=== PATIENT | male | born 1945 | race Caucasian/White ===

== ENCOUNTER 2020-08-08 12:22 | Inpatient (IN) ==
[2020-08-08] MEDS ORDERED: 0.9 % Sodium Chloride 1,000 ML IVC ONE (12:29)
[2020-08-08] MEDS ORDERED: levoFLOXacin 750 MG/150 ML 750 MG/150 ML BAG IVPB ONE (12:29)
[2020-08-08] MEDS ORDERED: 0.9 % Sodium Chloride 2,000 ML ONE (12:30)
[2020-08-08 13:06] LABS: Basophils # 0.1 K/mcL (0.0-0.2); Basophils % 0.2 %; Hematocrit 37.3 % (37.5-50.1); Hemoglobin 12.4 g/dL (12.9-16.9); Immature Granulocytes % 0.8 % (0-4); Lymphocytes # 1.3 K/mcL (0.6-4.6); Mean Corpuscular HGB Conc 33.2 g/dL (31.6-35.5); Mean Corpuscular Volume 90.3 fL (83.0-100.0); Mean Platelet Volume 11.5 fL (9.4-12.4); Monocytes # 2.1 K/mcL (0.0-1.3); Neutrophils # 17.6 K/mcL (1.6-8.9); Platelet Count 165 K/mcL (140-400); Red Blood Count 4.13 M/mcL (4.19-5.50); Red Cell Distribution Width 13.6 % (11.5-14.5); White Blood Count 21.3 K/mcL (4.3-11.1)
[2020-08-08 13:07] LABS: INR 1.2; Prothrombin Time 14.1 Seconds (9.4-12.1)
[2020-08-08 13:10] LABS: Activated Partial Thrombo Time 27.9 Seconds (26.0-36.0)
[2020-08-08 13:24] LABS: Bilirubin,Urine Negative (Negative); Blood,Urine Large (Negative); Clarity,Urine Turbid (Clear); Color,Urine Yellow (Yellow); Glucose,Urine (UA) 50 mg/dL (Normal); Ketones,Urine Trace mg/dL (Negative); Leukocyte Esterase,Urine Small (Negative); Mucus,Urine Few per lpf (None-Few); Nitrite,Urine Negative (Negative); PH,Urine 6.5 pH Units (5.0-8.0); Protein,Urine >=600 mg/dL (Neg-Trace); RBC,Urine TNTC per hpf (0-3); Specific Gravity,Urine 1.024 (1.010-1.025); Squamous Epithelial Cell,Urine Few per hpf (None-Few); Urobilinogen,Urine Normal (Normal); WBC,Urine TNTC per hpf (0-3)
[2020-08-08 13:25] LABS: Albumin 3.3 g/dL (3.5-5.7); Albumin/Globulin Ratio 1.4 (1.1-2.2); Bilirubin,Direct 0.2 mg/dL (0.0-0.2); Bilirubin,Indirect 0.7 mg/dL (0.0-1.0); Bilirubin,Total 0.9 mg/dL (0.3-1.0); Calcium 8.2 mg/dL (8.6-10.3); Globulin 2.4 g/dL (2.4-3.5); Magnesium 1.2 mg/dL (1.6-2.6); Phosphorous 2.9 mg/dL (2.7-4.5); Potassium 4.1 mEq/L (3.5-5.1); Total Protein 5.7 g/dL (6.4-8.9); Troponin I 0.19 ng/mL (< 0.04)
[2020-08-08] MEDS ORDERED: D5% in Water 1,000 ML IVC PRN (13:53)
[2020-08-08] MEDS ORDERED: Dextrose Gel 15 GM/37.5 ML TUBE PO PRN ×2 (13:53)
[2020-08-08] MEDS ORDERED: *HR* Dextrose 50 % in Water (Vial) 50 ML VIAL IVP PRN (13:53)
[2020-08-08] MEDS ORDERED: Ondansetron 4 MG/2 ML VIAL IVP PRN (13:53)
[2020-08-08] MEDS ORDERED: Naloxone 0.4 MG/ML INJ IVP PRN (13:53)
[2020-08-08] MEDS: Gabapentin 400 MG CAPSULE PO SCH ×2 (14:56→21:10)
[2020-08-08] MEDS: *HR* HYDROcodone/Acet 5/325 mg TABLET PO PRN (14:59)
[2020-08-08] MEDS: Insulin LISPRO 300 UNITS/3 ML VIAL SUBQ SCH (16:16)
[2020-08-08] MEDS: *HR* Heparin 5,000 UNIT/ML VIAL SQ SCH (16:16)
[2020-08-08 16:47] LABS: Estimated Average Glucose 160 mg/dl; Hemoglobin A1C 7.2 %
[2020-08-08] MEDS ORDERED: *HR* Heparin 5,000 UNIT/ML VIAL IVP ONE (20:49)
[2020-08-08] MEDS ORDERED: *HR* Heparin 5,000 UNIT/ML VIAL IVP PRN ×2 (20:49)
[2020-08-08] MEDS ORDERED: Insulin LISPRO 300 UNITS/3 ML VIAL SUBQ SCH (21:00)
[2020-08-08] MEDS: *HR* OxyCODONE Immed Rel 5 MG TABLET PO PRN (21:10)
[2020-08-08] MEDS: Insulin DETEMIR 100 UNIT/ML X5UNITS SUBQ SCH (21:20)
[2020-08-08] MEDS: Heparin 25,000UNIT/250ML 1/2NS 25,000 UNIT/250 ML IV.SOLN IVC SCH (21:23)
[2020-08-08 21:30] LABS: Heparin anti-factor XA UFH < 0.04 IU/mL (0.30-0.70); INR 1.4; Prothrombin Time 15.9 Seconds (9.4-12.1)
[2020-08-08 21:32] LABS: Activated Partial Thrombo Time 25.1 Seconds (26.0-36.0)
[2020-08-09 00:34] LABS: Basophils % 0.2 %; Hematocrit 35.7 % (37.5-50.1); Hemoglobin 11.8 g/dL (12.9-16.9); Immature Granulocytes % 1.3 % (0-4); Lymphocytes # 1.4 K/mcL (0.6-4.6); Lymphocytes % 5.5 %; Mean Corpuscular HGB Conc 33.1 g/dL (31.6-35.5); Mean Corpuscular Volume 90.8 fL (83.0-100.0); Mean Platelet Volume 11.3 fL (9.4-12.4); Monocytes # 2.4 K/mcL (0.0-1.3); Monocytes % 9.5 %; Neutrophils # 20.8 K/mcL (1.6-8.9); Platelet Count 161 K/mcL (140-400); Red Blood Count 3.93 M/mcL (4.19-5.50); Red Cell Distribution Width 13.7 % (11.5-14.5); Segmented Neutrophils % 83.5 %; White Blood Count 24.9 K/mcL (4.3-11.1)
[2020-08-09 00:53] LABS: Albumin/Globulin Ratio 1.2 (1.1-2.2); Bilirubin,Total 1.2 mg/dL (0.3-1.0); Calcium 7.9 mg/dL (8.6-10.3); Chol/HDL Ratio 2.5 (0-4.9); Globulin 2.5 g/dL (2.4-3.5); Magnesium 1.4 mg/dL (1.6-2.6); Potassium 4.1 mEq/L (3.5-5.1); Total Protein 5.5 g/dL (6.4-8.9)
[2020-08-09] MEDS: Acetaminophen 325 MG TABLET PO PRN ×2 (02:22→20:55)
[2020-08-09] MEDS: *HR* OxyCODONE Immed Rel 5 MG TABLET PO PRN (05:28)
[2020-08-09] MEDS: *HR* Heparin 5,000 UNIT/ML VIAL SQ SCH (05:28)
[2020-08-09 05:51] LABS: Adenovirus Not Detected (Not Detect); Bordetella Pertussis Not Detected (Not Detect); Chlamydophila pneumoniae Not Detected (Not Detect); Coronavirus 229E Not Detected (Not Detect); Coronavirus HKU1 Not Detected (Not Detect); Coronavirus NL63 Not Detected (Not Detect); Coronavirus OC43 Not Detected (Not Detect); Human Metapneumovirus Not Detected (Not Detect); Human Rhinovirus/Enterovirus Not Detected (Not Detect); Influenza A Subtype 2009 H1 Not Detected (Not Detect); Influenza B Not Detected (Not Detect); Mycoplasma pneumoniae Not Detected (Not Detect); Parainfluenza Virus 1 Not Detected (Not Detect); Parainfluenza Virus 2 Not Detected (Not Detect); Parainfluenza Virus 3 Not Detected (Not Detect); Parainfluenza Virus 4 Not Detected (Not Detect); Respiratory Syncytial Virus Not Detected (Not Detect)
[2020-08-09] MEDS ORDERED: Perflutren Lipid Microsphere 1.3 ML in 0.9 % Sodium Chloride 8.7 ML IVP PRN ×2 (05:57→09:15)
[2020-08-09] MEDS ORDERED: Ipratropium/Albuterol Neb 3 ML IH PRN (07:42)
[2020-08-09] MEDS ORDERED: Magnesium Sulfate 1 GM/102 ML PIGGYBACK IVPB ONE (07:44)
[2020-08-09] MEDS: Insulin LISPRO 300 UNITS/3 ML VIAL SUBQ SCH ×3 (08:03→20:51)
[2020-08-09 08:32] LABS: ABG Base Excess -1 mEq/L (-2 to 3); ABG HCO3 26 mEq/L (21-27); ABG Oxygen Saturation 91 % (95-98); ABG PCO2 56 mmHg (35-45); ABG PH 7.28 pH Units (7.32-7.45); ABG PO2 69 mmHg (85-104); ABG TCO2 28 mEq/L (20-26)
[2020-08-09] MEDS ORDERED: NIFEdipine XL (24 HR) 60 MG TAB.ER.24 PO SCH (09:00)
[2020-08-09] MEDS: Thiamine (B-1) 100 MG TABLET PO SCH (09:25)
[2020-08-09] MEDS: Cholecalciferol (D-3) 1,000 UNIT (25MCG) TABLET PO SCH (09:25)
[2020-08-09] MEDS: Aspirin Enteric Coated 81 MG Tablet PO SCH (09:25)
[2020-08-09] MEDS: Multivit/Ca/Min/Fe/FA 1 TAB TABLET PO SCH (09:26)
[2020-08-09] MEDS: Isosorbide MONOnitrate (24 HR) 30 MG TAB.ER.24H PO SCH (09:28)
[2020-08-09] MEDS: Furosemide 20 MG/2 ML VIAL IVP SCH ×2 (09:31→20:55)
[2020-08-09] MEDS: Insulin DETEMIR 100 UNIT/ML X5UNITS SUBQ SCH (09:31)
[2020-08-09] MEDS: Albumin 25% 25gram/100mL 25 GM/100 ML IV.SOLN IVPB SCH ×3 (10:58→23:36)
[2020-08-09] MEDS ORDERED: Insulin LISPRO 300 UNITS/3 ML VIAL SUBQ SCH (12:00)
[2020-08-09 13:57] LABS: ABG Base Excess -2 mEq/L (-2 to 3); ABG HCO3 24 mEq/L (21-27); ABG Oxygen Saturation 93 % (95-98); ABG PCO2 47 mmHg (35-45); ABG PH 7.32 pH Units (7.32-7.45); ABG PO2 72 mmHg (85-104); ABG TCO2 26 mEq/L (20-26); Blood Gas Modality AVAPS; Blood Gas VT 500 cc
[2020-08-09] MEDS: Heparin 25,000UNIT/250ML 1/2NS 25,000 UNIT/250 ML IV.SOLN IVC SCH (14:25)
[2020-08-09] MEDS: Ipratropium/Albuterol Neb 3 ML IH SCH ×2 (16:14→22:21)
[2020-08-09 16:21] LABS: Potassium,Urine 25.8 mEq/L; Protein/Creatinine Ratio,Urine 14.89 mg/mg (0.00-0.20); Sodium, Urine 39.4 mEq/L
[2020-08-09] MEDS ORDERED: Insulin DETEMIR 100 UNIT/ML X5UNITS SUBQ SCH (21:00)
[2020-08-10 02:52] LABS: Basophils % 0.1 %; Eosinophils % 0.2 %; Hematocrit 31.8 % (37.5-50.1); Immature Granulocytes % 0.7 % (0-4); Lymphocytes # 1.7 K/mcL (0.6-4.6); Lymphocytes % 12.3 %; Mean Corpuscular HGB Conc 31.8 g/dL (31.6-35.5); Mean Corpuscular Hemoglobin 29.9 pg (28.0-33.3); Mean Corpuscular Volume 94.1 fL (83.0-100.0); Mean Platelet Volume 12.1 fL (9.4-12.4); Monocytes % 7.5 %; Neutrophils # 10.8 K/mcL (1.6-8.9); Platelet Count 128 K/mcL (140-400); Red Blood Count 3.38 M/mcL (4.19-5.50); Red Cell Distribution Width 13.9 % (11.5-14.5); Segmented Neutrophils % 79.2 %; White Blood Count 13.7 K/mcL (4.3-11.1)
[2020-08-10 02:54] LABS: Hemoglobin 10.1 g/dL (12.9-16.9)
[2020-08-10 03:09] LABS: Calcium 8.3 mg/dL (8.6-10.3); Phosphorous 4.8 mg/dL (2.7-4.5); Potassium 4.3 mEq/L (3.5-5.1); Uric Acid 6.9 mg/dL (2.3-7.6)
[2020-08-10 03:12] LABS: Acetaminophen < 10 mcg/mL (10-20); Salicylate < 2.5 mg/dL (15.0-30.0)
[2020-08-10] MEDS: Ipratropium/Albuterol Neb 3 ML IH SCH ×4 (04:12→21:45)
[2020-08-10] MEDS: Thiamine (B-1) 100 MG TABLET PO SCH (09:01)
[2020-08-10] MEDS: Insulin LISPRO 300 UNITS/3 ML VIAL SUBQ SCH ×4 (09:01→20:29)
[2020-08-10] MEDS: Aspirin Enteric Coated 81 MG Tablet PO SCH (09:01)
[2020-08-10] MEDS: NIFEdipine XL (24 HR) 30 MG TAB.ER.24 PO SCH (09:01)
[2020-08-10] MEDS: Cholecalciferol (D-3) 1,000 UNIT (25MCG) TABLET PO SCH (09:02)
[2020-08-10] MEDS: Multivit/Ca/Min/Fe/FA 1 TAB TABLET PO SCH (09:02)
[2020-08-10] MEDS: Isosorbide MONOnitrate (24 HR) 30 MG TAB.ER.24H PO SCH (09:02)
[2020-08-10] MEDS: Heparin 25,000UNIT/250ML 1/2NS 25,000 UNIT/250 ML IV.SOLN IVC SCH (09:17)
[2020-08-10] MEDS: Albumin 25% 25gram/100mL 25 GM/100 ML IV.SOLN IVPB SCH ×3 (09:19→23:08)
[2020-08-10] MEDS ORDERED: levoFLOXacin 750 MG/150 ML 750 MG/150 ML BAG IVPB SCH (13:00)
[2020-08-10] MEDS: cefTRIAXone 1,000 MG in Water for inj. (sterile) 10 ML IVP SCH (14:22)
[2020-08-10] MEDS: Acetaminophen 325 MG TABLET PO PRN (19:57)
[2020-08-10] MEDS: *HR* Heparin 5,000 UNIT/ML VIAL SQ SCH (21:15)
[2020-08-10] MEDS ORDERED: Sod Borate/Boric acid/NaCl 118 ML IRRIG.SOLN OP ONE (22:22)
[2020-08-10] MEDS ORDERED: Ketorolac OPTH Soln 5 ML BOTTLE RIGHT EYE ONE (22:26)
[2020-08-10] MEDS ORDERED: Erythromycin OPTH Oint RIGHT EYE ONE (22:27)
[2020-08-11] MEDS: Ipratropium/Albuterol Neb 3 ML IH SCH ×4 (03:23→21:36)
[2020-08-11 03:27] LABS: Basophils % 0.1 %; Eosinophils % 0.2 %; Hematocrit 29.3 % (37.5-50.1); Hemoglobin 9.6 g/dL (12.9-16.9); Immature Granulocytes % 1.2 % (0-4); Lymphocytes # 1.2 K/mcL (0.6-4.6); Lymphocytes % 12.4 %; Mean Corpuscular HGB Conc 32.8 g/dL (31.6-35.5); Mean Corpuscular Hemoglobin 29.5 pg (28.0-33.3); Mean Corpuscular Volume 90.2 fL (83.0-100.0); Mean Platelet Volume 11.9 fL (9.4-12.4); Monocytes # 0.8 K/mcL (0.0-1.3); Monocytes % 8.9 %; Neutrophils # 7.3 K/mcL (1.6-8.9); Platelet Count 138 K/mcL (140-400); Red Blood Count 3.25 M/mcL (4.19-5.50); Red Cell Distribution Width 13.2 % (11.5-14.5); Segmented Neutrophils % 77.2 %; White Blood Count 9.4 K/mcL (4.3-11.1)
[2020-08-11 03:46] LABS: Calcium 8.8 mg/dL (8.6-10.3); Magnesium 2.1 mg/dL (1.6-2.6); Potassium 3.7 mEq/L (3.5-5.1)
[2020-08-11] MEDS: *HR* Heparin 5,000 UNIT/ML VIAL SQ SCH ×3 (05:13→22:13)
[2020-08-11] MEDS: Insulin LISPRO 300 UNITS/3 ML VIAL SUBQ SCH ×4 (07:42→21:49)
[2020-08-11] MEDS: *HR* HYDROcodone/Acet 5/325 mg TABLET PO PRN ×2 (09:27→17:07)
[2020-08-11] MEDS: Cholecalciferol (D-3) 1,000 UNIT (25MCG) TABLET PO SCH (09:27)
[2020-08-11] MEDS: Thiamine (B-1) 100 MG TABLET PO SCH (09:28)
[2020-08-11] MEDS: Multivit/Ca/Min/Fe/FA 1 TAB TABLET PO SCH (09:28)
[2020-08-11] MEDS: Isosorbide MONOnitrate (24 HR) 30 MG TAB.ER.24H PO SCH (09:28)
[2020-08-11] MEDS: NIFEdipine XL (24 HR) 30 MG TAB.ER.24 PO SCH (09:28)
[2020-08-11] MEDS: Aspirin Enteric Coated 81 MG Tablet PO SCH (09:28)
[2020-08-11] MEDS: Gabapentin 400 MG CAPSULE PO SCH ×3 (09:28→22:10)
[2020-08-11] MEDS: Albumin 25% 25gram/100mL 25 GM/100 ML IV.SOLN IVPB SCH ×3 (09:29→23:12)
[2020-08-11] MEDS: Insulin DETEMIR 100 UNIT/ML X5UNITS SUBQ SCH ×2 (09:54→22:10)
[2020-08-11] MEDS: cefTRIAXone 1,000 MG in Water for inj. (sterile) 10 ML IVP SCH (14:11)
[2020-08-11] MEDS: Amoxicillin/Clavulanate 500 MG TABLET PO SCH (17:07)
[2020-08-11] MEDS: *HR* OxyCODONE Immed Rel 5 MG TABLET PO PRN (23:12)
[2020-08-12 03:46] LABS: Calcium 8.8 mg/dL (8.6-10.3); Phosphorous 4.2 mg/dL (2.7-4.5); Potassium 4.2 mEq/L (3.5-5.1)
[2020-08-12] MEDS: Ipratropium/Albuterol Neb 3 ML IH SCH ×4 (04:18→22:42)
[2020-08-12 04:33] LABS: Basophils % 0.4 %; Eosinophils # 0.1 K/mcL (0.0-0.6); Eosinophils % 1.2 %; Hematocrit 29.9 % (37.5-50.1); Hemoglobin 9.7 g/dL (12.9-16.9); Immature Granulocytes % 1.7 % (0-4); Lymphocytes # 0.8 K/mcL (0.6-4.6); Lymphocytes % 9.9 %; Mean Corpuscular HGB Conc 32.4 g/dL (31.6-35.5); Mean Corpuscular Hemoglobin 29.3 pg (28.0-33.3); Mean Corpuscular Volume 90.3 fL (83.0-100.0); Mean Platelet Volume 11.4 fL (9.4-12.4); Monocytes % 12.9 %; Neutrophils # 5.6 K/mcL (1.6-8.9); Platelet Count 153 K/mcL (140-400); Red Blood Count 3.31 M/mcL (4.19-5.50); Red Cell Distribution Width 13.2 % (11.5-14.5); Segmented Neutrophils % 73.9 %; White Blood Count 7.6 K/mcL (4.3-11.1)
[2020-08-12] MEDS: *HR* Heparin 5,000 UNIT/ML VIAL SQ SCH ×3 (06:15→23:16)
[2020-08-12] MEDS: Insulin LISPRO 300 UNITS/3 ML VIAL SUBQ SCH ×4 (08:21→23:16)
[2020-08-12] MEDS: Gabapentin 400 MG CAPSULE PO SCH ×3 (08:22→23:15)
[2020-08-12] MEDS: Thiamine (B-1) 100 MG TABLET PO SCH (08:22)
[2020-08-12] MEDS: Amoxicillin/Clavulanate 500 MG TABLET PO SCH ×2 (08:22→14:21)
[2020-08-12] MEDS: Multivit/Ca/Min/Fe/FA 1 TAB TABLET PO SCH (08:22)
[2020-08-12] MEDS: Isosorbide MONOnitrate (24 HR) 30 MG TAB.ER.24H PO SCH (08:22)
[2020-08-12] MEDS: Aspirin Enteric Coated 81 MG Tablet PO SCH (08:22)
[2020-08-12] MEDS: Cholecalciferol (D-3) 1,000 UNIT (25MCG) TABLET PO SCH (08:22)
[2020-08-12] MEDS: Insulin DETEMIR 100 UNIT/ML X5UNITS SUBQ SCH ×2 (08:42→23:16)
[2020-08-12] MEDS: *HR* OxyCODONE Immed Rel 5 MG TABLET PO PRN ×2 (08:43→23:15)
[2020-08-12] MEDS: NIFEdipine XL (24 HR) 30 MG TAB.ER.24 PO SCH (08:43)
[2020-08-12] MEDS: Acetaminophen 325 MG TABLET PO PRN (16:31)
[2020-08-13] MEDS: Ipratropium/Albuterol Neb 3 ML IH SCH ×4 (03:40→21:52)
[2020-08-13 03:43] LABS: Basophils # 0.1 K/mcL (0.0-0.2); Basophils % 0.6 %; Eosinophils # 0.2 K/mcL (0.0-0.6); Eosinophils % 2.3 %; Hematocrit 30.5 % (37.5-50.1); Hemoglobin 10.1 g/dL (12.9-16.9); Immature Granulocytes % 2.6 % (0-4); Lymphocytes # 0.9 K/mcL (0.6-4.6); Mean Corpuscular HGB Conc 33.1 g/dL (31.6-35.5); Mean Corpuscular Hemoglobin 30.1 pg (28.0-33.3); Mean Corpuscular Volume 90.8 fL (83.0-100.0); Mean Platelet Volume 11.3 fL (9.4-12.4); Monocytes # 1.1 K/mcL (0.0-1.3); Monocytes % 10.7 %; Neutrophils # 7.3 K/mcL (1.6-8.9); Platelet Count 172 K/mcL (140-400); Red Blood Count 3.36 M/mcL (4.19-5.50); Red Cell Distribution Width 13.1 % (11.5-14.5); Segmented Neutrophils % 74.8 %; White Blood Count 9.8 K/mcL (4.3-11.1)
[2020-08-13 04:05] LABS: Albumin 3.7 g/dL (3.5-5.7); Albumin/Globulin Ratio 1.6 (1.1-2.2); Bilirubin,Direct 0.1 mg/dL (0.0-0.2); Bilirubin,Indirect 0.5 mg/dL (0.0-1.0); Bilirubin,Total 0.6 mg/dL (0.3-1.0); Calcium 8.9 mg/dL (8.6-10.3); Globulin 2.3 g/dL (2.4-3.5); Phosphorous 4.4 mg/dL (2.7-4.5); Potassium 3.9 mEq/L (3.5-5.1)
[2020-08-13 04:34] LABS: Folate > 22.3 ng/mL (3.0-16.0); Vitamin B12 227 pg/mL (250-1100)
[2020-08-13] MEDS: *HR* Heparin 5,000 UNIT/ML VIAL SQ SCH ×3 (06:15→21:11)
[2020-08-13] MEDS: Insulin LISPRO 300 UNITS/3 ML VIAL SUBQ SCH ×4 (08:23→21:08)
[2020-08-13] MEDS: Isosorbide MONOnitrate (24 HR) 30 MG TAB.ER.24H PO SCH (08:24)
[2020-08-13] MEDS: Multivit/Ca/Min/Fe/FA 1 TAB TABLET PO SCH (08:24)
[2020-08-13] MEDS: NIFEdipine XL (24 HR) 30 MG TAB.ER.24 PO SCH (08:24)
[2020-08-13] MEDS: Cholecalciferol (D-3) 1,000 UNIT (25MCG) TABLET PO SCH (08:24)
[2020-08-13] MEDS: Aspirin Enteric Coated 81 MG Tablet PO SCH (08:24)
[2020-08-13] MEDS: Cyanocobalamin (B-12) 1,000 MCG TABLET PO SCH (08:24)
[2020-08-13] MEDS: Thiamine (B-1) 100 MG TABLET PO SCH (08:24)
[2020-08-13] MEDS: Gabapentin 400 MG CAPSULE PO SCH (08:24)
[2020-08-13] MEDS: Amoxicillin/Clavulanate 500 MG TABLET PO SCH ×2 (08:25→16:53)
[2020-08-13] MEDS: Insulin DETEMIR 100 UNIT/ML X5UNITS SUBQ SCH ×2 (08:28→21:08)
[2020-08-13] MEDS: Albumin 25% 25gram/100mL 25 GM/100 ML IV.SOLN IVPB SCH ×3 (10:36→20:25)
[2020-08-13] MEDS: Gabapentin 300 MG CAPSULE PO SCH ×2 (13:46→20:24)
[2020-08-13 18:52] LABS: Adenovirus Not Detected (Not Detect); Bordetella Pertussis Not Detected (Not Detect); Chlamydophila pneumoniae Not Detected (Not Detect); Coronavirus 229E Not Detected (Not Detect); Coronavirus HKU1 Not Detected (Not Detect); Coronavirus NL63 Not Detected (Not Detect); Coronavirus OC43 Not Detected (Not Detect); Human Metapneumovirus Not Detected (Not Detect); Human Rhinovirus/Enterovirus Not Detected (Not Detect); Influenza A Subtype 2009 H1 Not Detected (Not Detect); Influenza B Not Detected (Not Detect); Mycoplasma pneumoniae Not Detected (Not Detect); Parainfluenza Virus 1 Not Detected (Not Detect); Parainfluenza Virus 2 Not Detected (Not Detect); Parainfluenza Virus 3 Not Detected (Not Detect); Parainfluenza Virus 4 Not Detected (Not Detect); Respiratory Syncytial Virus Not Detected (Not Detect); SARS-CoV-2 Not Detected (Not Detect)
[2020-08-13] MEDS: Sennosides/Docusate Sodium TABLET PO SCH (20:24)
[2020-08-14] MEDS: Ipratropium/Albuterol Neb 3 ML IH SCH ×4 (03:37→23:11)
[2020-08-14] MEDS: *HR* Heparin 5,000 UNIT/ML VIAL SQ SCH ×3 (05:16→20:18)
[2020-08-14 07:47] LABS: VBG HCO3 21 mEq/L (21-27); VBG PCO2 39 mmHg (41-51); VBG PH 7.34 pH Units (7.32-7.42); VBG PO2 172 mmHg (25-50)
[2020-08-14 07:52] LABS: Hematocrit 29.1 % (37.5-50.1); Hemoglobin 9.7 g/dL (12.9-16.9); Mean Corpuscular HGB Conc 33.3 g/dL (31.6-35.5); Mean Corpuscular Hemoglobin 29.8 pg (28.0-33.3); Mean Corpuscular Volume 89.3 fL (83.0-100.0); Red Blood Count 3.26 M/mcL (4.19-5.50); Red Cell Distribution Width 13.1 % (11.5-14.5); White Blood Count 10.2 K/mcL (4.3-11.1)
[2020-08-14 07:53] LABS: Basophils % 0.3 %; Eosinophils # 0.2 K/mcL (0.0-0.6); Lymphocytes % 9.9 %; Mean Platelet Volume 11.7 fL (9.4-12.4); Monocytes % 9.8 %; Neutrophils # 7.8 K/mcL (1.6-8.9); Nucleated Red Blood Cells 0.2 /100 WBC (0); Platelet Count 177 K/mcL (140-400)
[2020-08-14 08:07] LABS: Calcium 9.1 mg/dL (8.6-10.3); Magnesium 2.2 mg/dL (1.6-2.6); Potassium 3.8 mEq/L (3.5-5.1)
[2020-08-14] MEDS: Cyanocobalamin (B-12) 1,000 MCG TABLET PO SCH (09:22)
[2020-08-14] MEDS: Thiamine (B-1) 100 MG TABLET PO SCH (09:22)
[2020-08-14] MEDS: Gabapentin 300 MG CAPSULE PO SCH ×2 (09:22→14:27)
[2020-08-14] MEDS: Isosorbide MONOnitrate (24 HR) 30 MG TAB.ER.24H PO SCH (09:22)
[2020-08-14] MEDS: NIFEdipine XL (24 HR) 30 MG TAB.ER.24 PO SCH (09:22)
[2020-08-14] MEDS: Multivit/Ca/Min/Fe/FA 1 TAB TABLET PO SCH (09:22)
[2020-08-14] MEDS: Sennosides/Docusate Sodium TABLET PO SCH ×2 (09:23→20:19)
[2020-08-14] MEDS: *HR* OxyCODONE Immed Rel 5 MG TABLET PO PRN (09:23)
[2020-08-14] MEDS: Cholecalciferol (D-3) 1,000 UNIT (25MCG) TABLET PO SCH (09:23)
[2020-08-14] MEDS: Aspirin Enteric Coated 81 MG Tablet PO SCH (09:23)
[2020-08-14] MEDS: Amoxicillin/Clavulanate 500 MG TABLET PO SCH ×2 (09:23→18:42)
[2020-08-14] MEDS: Albumin 25% 25gram/100mL 25 GM/100 ML IV.SOLN IVPB SCH (09:24)
[2020-08-14] MEDS: Insulin LISPRO 300 UNITS/3 ML VIAL SUBQ SCH ×4 (09:25→20:18)
[2020-08-14] MEDS: polyethylene glycoL 3350 17 GM POWD.PACK PO SCH (09:25)
[2020-08-14] MEDS: Insulin DETEMIR 100 UNIT/ML X5UNITS SUBQ SCH ×2 (09:45→20:18)
[2020-08-14] MEDS: Budesonide Neb 0.5 MG/2 ML IH SCH ×2 (10:50→23:11)
[2020-08-14] MEDS: Acetylcysteine 10% 2 ML INHSOL IH SCH ×3 (10:50→23:10)
[2020-08-15 01:23] LABS: Basophils % 0.2 %; Hematocrit 27.8 % (37.5-50.1); Hemoglobin 9.4 g/dL (12.9-16.9); Immature Granulocytes % 4.2 % (0-4); Lymphocytes # 0.4 K/mcL (0.6-4.6); Lymphocytes % 4.1 %; Mean Corpuscular HGB Conc 33.8 g/dL (31.6-35.5); Mean Corpuscular Hemoglobin 29.5 pg (28.0-33.3); Mean Corpuscular Volume 87.1 fL (83.0-100.0); Mean Platelet Volume 11.8 fL (9.4-12.4); Monocytes # 0.3 K/mcL (0.0-1.3); Monocytes % 3.6 %; Neutrophils # 7.8 K/mcL (1.6-8.9); Platelet Count 199 K/mcL (140-400); Red Blood Count 3.19 M/mcL (4.19-5.50); Segmented Neutrophils % 87.9 %; White Blood Count 8.9 K/mcL (4.3-11.1)
[2020-08-15 01:26] LABS: VBG HCO3 19 mEq/L (21-27); VBG PCO2 35 mmHg (41-51); VBG PH 7.35 pH Units (7.32-7.42); VBG PO2 163 mmHg (25-50)
[2020-08-15 01:43] LABS: Magnesium 2.3 mg/dL (1.6-2.6); Phosphorous 5.8 mg/dL (2.7-4.5); Potassium 4.4 mEq/L (3.5-5.1)
[2020-08-15] MEDS: Ipratropium/Albuterol Neb 3 ML IH SCH ×4 (03:00→23:14)
[2020-08-15] MEDS: Acetylcysteine 10% 2 ML INHSOL IH SCH ×4 (03:00→23:14)
[2020-08-15] MEDS: *HR* Heparin 5,000 UNIT/ML VIAL SQ SCH ×3 (05:16→20:08)
[2020-08-15] MEDS: *HR* OxyCODONE Immed Rel 5 MG TABLET PO PRN (06:13)
[2020-08-15] MEDS: Insulin LISPRO 300 UNITS/3 ML VIAL SUBQ SCH ×4 (09:41→20:05)
[2020-08-15] MEDS: Amoxicillin/Clavulanate 500 MG TABLET PO SCH ×2 (09:41→17:35)
[2020-08-15] MEDS: NIFEdipine XL (24 HR) 30 MG TAB.ER.24 PO SCH (09:41)
[2020-08-15] MEDS: Sennosides/Docusate Sodium TABLET PO SCH ×2 (09:41→20:06)
[2020-08-15] MEDS: Cyanocobalamin (B-12) 1,000 MCG TABLET PO SCH (09:42)
[2020-08-15] MEDS: Aspirin Enteric Coated 81 MG Tablet PO SCH (09:42)
[2020-08-15] MEDS: Multivit/Ca/Min/Fe/FA 1 TAB TABLET PO SCH (09:42)
[2020-08-15] MEDS: Cholecalciferol (D-3) 1,000 UNIT (25MCG) TABLET PO SCH (09:42)
[2020-08-15] MEDS: Gabapentin 300 MG CAPSULE PO SCH ×2 (09:42→20:06)
[2020-08-15] MEDS: polyethylene glycoL 3350 17 GM POWD.PACK PO SCH (09:43)
[2020-08-15] MEDS: Thiamine (B-1) 100 MG TABLET PO SCH (09:43)
[2020-08-15] MEDS: Isosorbide MONOnitrate (24 HR) 30 MG TAB.ER.24H PO SCH (09:43)
[2020-08-15] MEDS: Insulin DETEMIR 100 UNIT/ML X5UNITS SUBQ SCH ×3 (09:45→20:05)
[2020-08-15] MEDS: *HR* HYDROcodone/Acet 5/325 mg TABLET PO PRN ×2 (10:01→20:09)
[2020-08-15] MEDS: Budesonide Neb 0.5 MG/2 ML IH SCH ×2 (10:15→23:14)
[2020-08-15] MEDS ORDERED: Insulin DETEMIR 100 UNIT/ML X5UNITS SUBQ SCH ×2 (21:00)
[2020-08-15] MEDS ORDERED: Insulin DETEMIR 100 UNIT/ML X5UNITS SUBQ ONE (21:15)
[2020-08-16] MEDS: *HR* Heparin 5,000 UNIT/ML VIAL SQ SCH ×2 (04:06→13:31)
[2020-08-16] MEDS: Ipratropium/Albuterol Neb 3 ML IH SCH ×2 (04:26→09:56)
[2020-08-16] MEDS: Acetylcysteine 10% 2 ML INHSOL IH SCH ×2 (04:26→09:57)
[2020-08-16 05:44] LABS: Basophils % 0.2 %; Hematocrit 29.5 % (37.5-50.1); Immature Granulocytes % 4.6 % (0-4); Lymphocytes # 0.4 K/mcL (0.6-4.6); Lymphocytes % 4.1 %; Mean Corpuscular HGB Conc 33.9 g/dL (31.6-35.5); Mean Corpuscular Hemoglobin 29.5 pg (28.0-33.3); Mean Platelet Volume 11.6 fL (9.4-12.4); Monocytes # 0.7 K/mcL (0.0-1.3); Monocytes % 6.8 %; Platelet Count 230 K/mcL (140-400); Red Blood Count 3.39 M/mcL (4.19-5.50); Red Cell Distribution Width 13.2 % (11.5-14.5); Segmented Neutrophils % 84.3 %; White Blood Count 10.6 K/mcL (4.3-11.1)
[2020-08-16 06:06] LABS: Calcium 9.1 mg/dL (8.6-10.3); Magnesium 2.5 mg/dL (1.6-2.6); Potassium 4.6 mEq/L (3.5-5.1)
[2020-08-16] MEDS ORDERED: Insulin DETEMIR 100 UNIT/ML X5UNITS SUBQ SCH ×2 (09:00)
[2020-08-16] MEDS ORDERED: NIFEdipine XL (24 HR) 30 MG TAB.ER.24 PO SCH (09:00)
[2020-08-16] MEDS: Insulin LISPRO 300 UNITS/3 ML VIAL SUBQ SCH ×2 (09:36→13:30)
[2020-08-16] MEDS: Amoxicillin/Clavulanate 500 MG TABLET PO SCH (09:39)
[2020-08-16] MEDS: Isosorbide MONOnitrate (24 HR) 30 MG TAB.ER.24H PO SCH (09:39)
[2020-08-16] MEDS: Thiamine (B-1) 100 MG TABLET PO SCH (09:39)
[2020-08-16] MEDS: Multivit/Ca/Min/Fe/FA 1 TAB TABLET PO SCH (09:39)
[2020-08-16] MEDS: Aspirin Enteric Coated 81 MG Tablet PO SCH (09:39)
[2020-08-16] MEDS: Sennosides/Docusate Sodium TABLET PO SCH (09:39)
[2020-08-16] MEDS: Cholecalciferol (D-3) 1,000 UNIT (25MCG) TABLET PO SCH (09:40)
[2020-08-16] MEDS: polyethylene glycoL 3350 17 GM POWD.PACK PO SCH (09:40)
[2020-08-16] MEDS: Cyanocobalamin (B-12) 1,000 MCG TABLET PO SCH (09:40)
[2020-08-16] MEDS: Gabapentin 300 MG CAPSULE PO SCH (09:40)
[2020-08-16] MEDS: Budesonide Neb 0.5 MG/2 ML IH SCH (09:56)
[2020-08-16 12:01] VITALS: BP 147/57
== END 2020-08-16 16:14 | disposition short-term general hospital (02) | DRG 871 ==
LOC: 2ANU 12:22 → EMEROOARM 12:22 → SUATTDRO 13:45 → 2ANU 14:44 → SUATTDRO 08-09 11:46
PROVIDERS: ADMIT Internal Medicine; ATTEND Pharmacist